=== PATIENT | female | born 1980 | race Two or more races ===

== ENCOUNTER 2021-06-09 10:31 | Day surgery (SDC) | payer OTHER ==
[~2021-06-09 10:31] MED LIST: BACLOFEN10 MG PO; CATAFLAN PO; LIPITOR80 MG PO
[2021-06-09] MEDS ORDERED: IBU400 MG PO (14:31)
[2021-06-09] MEDS ORDERED: ZITHROMAX500 MG PO (14:31)
== END 2021-06-09 16:35 | disposition home or self-care (01) ==
LOC: CIR.AMB 10:31
PROVIDERS: ATTEND Obstetrics & Gynecology
DX: N84.0 Polyp of corpus uteri (principal); Z20.822 Contact with and (suspected) exposure to COVID-19